=== PATIENT | male | born 1985 | race Caucasian/White ===

== ENCOUNTER 2016-11-05 21:05 | Emergency (ER) | payer OTHER ==
[2016-11-05 21:10] VITALS: BP 146/70; PULSE 74; TEMP 98.1; BMI 25.7
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
== END 2016-11-05 22:50 | disposition home or self-care (01) ==
LOC: JERFT 21:05
DX: S69.81XA Other specified injuries of right wrist, hand and finger(s), initial encounter (principal); Y35.891A Legal intervention involving other specified means, law enforcement official injured, initial encounter; Y93.89 Activity, other specified; Y92.89 Other specified places as the place of occurrence of the external cause; Y99.0 Civilian activity done for income or pay
CPT/HCPCS: 73110-TC-RT; 73130-TC-RT; 99281-25

== ENCOUNTER 2016-12-30 22:23 | Emergency (ER) | payer OTHER ==
[2016-12-30 22:39] VITALS: BP 150/94; PULSE 95; TEMP 98
--- NOTE | 2016-12-31 00:38 | PDOC ---
History of Present Illness - General Chief Complaint: Injury Stated Complaint: INJURY-[employer] Time Seen by Provider: 12/30/16 23:30 - History of Present Illness Initial Comments: 12/31/16 00:36 CHIEF COMPLAINT: HISTORY OF PRESENT ILLNESS: No recent travel or sick contacts. PAST MEDICAL HISTORY: Denies past medical history FAMILY HISTORY: Denies SOCIAL HISTORY: Lives at home with ____. Occupation: . Denies tobacco, alcohol, illicit drug use. SURGICAL HISTORY: Denies ALLERGIES: No known drug allergies REVIEW OF SYSTEMS General/Constitutional: Denies fever or chills. Denies weakness, weight change. HEENT: Denies change in vision. Denies ear pain or discharge. Denies sore throat. Cardiovascular: Denies chest pain or shortness of breath. Respiratory: Denies cough, wheezing, or hemoptysis. Gastrointestinal: Denies nausea, vomiting, diarrhea or constipation. Denies rectal bleeding. Genitourinary: Denies dysuria, frequency, or change in urination. Musculoskeletal: Denies joint or muscle swelling or pain. Denies neck or back pain. Skin and breasts: Denies rash or easy bruising. Neurologic: Denies headache, vertigo, loss of consciousness, or loss of sensation. Psychiatric: Denies depression or anxiety. Endocrine: Denies increased thirst. Denies abnormal weight change. Hematologic/Lymphatic: Denies anemia, easy bleeding, or history of blood clots. Allergic/Immunologic: Denies hives or skin allergy. Denies latex allergy. PHYSICAL EXAM General Appearance: Well-appearing, appropriately dressed. No apparent distress , no intoxication. HEENT: EOMI, PERRLA, normal ENT inspection, normal voice, TMs normal, pharynx normal. No conjunctival pallor. No photophobia, scleral icterus. Neck: Supple. Trachea midline. No tenderness, rigidity, carotid bruit, stridor , lymphadenopathy, or thyromegaly. Respiratory/Chest: Lungs CTAB. No shortness of breath, chest tenderness, respiratory distress, accessory muscle use. No crackles, rales, rhonchi, stridor , wheezing, dullness Cardiovascular: RRR. S1, S2. No JVD, murmur, bradycardia, tachycardia. Vascular Pulses: Dorsalis-Pedis (R): 2+, Dorsalis-Pedis (L): 2+ Gastrointestinal/Abdominal: Normal bowel sounds. Abdomen soft, non-distended. No tenderness or rebound tenderness. No organomegaly, pulsatile mass, guarding , hernia, hepatomegaly, splenomegaly. Lymphatic: No adenopathy, tenderness. Musculoskeletal/Extremities: Normal inspection. FROM of all extremities, normal capillary refill. Pelvis Stable. No CVA tenderness. No tenderness to extremities, pedal edema, swelling, erythema or deformity. Integumentary: Appropriate color, dry, warm. No cyanosis, erythema, jaundice or rash Neurologic: bundle helper II-XII intact. Fully oriented, alert. Appropriate mood/affect. Motor strength 5/5. No appreciable EOM palsy, facial droop or sensory deficit. Past History - Past Medical History Allergies/Adverse Reactions: Allergies Allergy/AdvReac Type Severity Reaction Status Date / Time No Known Drug Allergies Allergy Verified 08/25/15 23:00 Home Medications: Ambulatory Orders No Home Medications 0 dose .ROUTE UTDICT 01/13/13 Ibuprofen 600 mg PO TID PRN #21 tablet 12/31/16 Anemia: No Asthma: No Cancer: No Cardiac Disorders: No CVA: No COPD: No CHF: No Dementia: No Diabetes: No GI Disorders: No Disorders: No HTN: No Hypercholesterolemia: No Liver Disease: No Seizures: No Thyroid Disease: No - Surgical History Abdominal Surgery: No Appendectomy: No Cardiac Surgery: No - Family Disease History Family Disease History: Heart Disease: Grandparents - Immunization History Td Vaccination: Yes Immunization Up to Date: Yes - Psycho/Social/Smoking Cessation Hx Anxiety: No Suicidal Ideation: No Smoking Status: No Smoking History: Never smoked Have you smoked in the past 12 months: Yes Number of Cigarettes Smoked Daily: 0 Cigars Per Day: 0 Information on smoking cessation initiated: No Hx Alcohol Use: No Drug/Substance Use Hx: No Substance Use Type: None Hx Substance Use Treatment: No *Physical Exam - Vital Signs Last Vital Signs Temp Pulse Resp BP Pulse Ox 98.0 F 95 H 18 150/94 100 12/30/16 22:37 12/30/16 22:37 12/30/16 22:37 12/30/16 22:37 12/30/16 22:37 ED Treatment Course - RADIOLOGY Radiology Studies Ordered: Category Date Time Status LEG TIB/FIB-LEFT [RAD] Stat Radiology 12/31/16 00:16 Taken *DC/Admit/Observation/Transfer Diagnosis at time of Disposition: Injury of figueroa Qualifiers: Encounter type: initial encounter Laterality: left Qualified Code(s): S89.92XA - Unspecified injury of left lower leg, initial encounter - Discharge Dispostion Disposition: HOME Condition at time of disposition: Stable Admit: No - Prescriptions Prescriptions: Ibuprofen 600 mg PO TID PRN #21 tablet PRN Reason: Pain - Patient Instructions Printed Discharge Instructions: How To Perform RICE (Rest, Ice, Compress, Elevate), DI for Leg Pain Additional Instructions: Please take medications as prescribed. Follow up with orthopedics if symptoms persist. If you experience any new or worsening symptoms, please return to the ER.
== END 2016-12-31 01:03 | disposition home or self-care (01) ==
LOC: JERFT 22:23 → JER 22:23
DX: S89.92XA Unspecified injury of left lower leg, initial encounter (principal); Y35.891A Legal intervention involving other specified means, law enforcement official injured, initial encounter; Y93.89 Activity, other specified; Y92.9 Unspecified place or not applicable; Y99.0 Civilian activity done for income or pay
CPT/HCPCS: 73590-TC-LT; 99281-25

== ENCOUNTER 2017-05-06 21:20 | Emergency (ER) | payer OTHER ==
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
[2017-05-06 21:37] VITALS: BP 141/100; PULSE 73; TEMP 98; BMI 25.7
== END 2017-05-06 21:37 | disposition home or self-care (01) ==
LOC: JER 21:20
DX: Z77.21 Contact with and (suspected) exposure to potentially hazardous body fluids (principal); Y35.891A Legal intervention involving other specified means, law enforcement official injured, initial encounter; Y93.89 Activity, other specified; Y92.89 Other specified places as the place of occurrence of the external cause; Y99.0 Civilian activity done for income or pay
CPT/HCPCS: 99281-25

== ENCOUNTER 2017-11-28 15:42 | Emergency (ER) | payer OTHER ==
[2017-11-28 15:52] VITALS: BP 144/81; PULSE 83; TEMP 98.6; BMI 25.7
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
== END 2017-11-28 16:59 | disposition home or self-care (01) ==
LOC: JER 15:42 → JERFT 15:42
DX: S69.81XA Other specified injuries of right wrist, hand and finger(s), initial encounter (principal); Y35.811A Legal intervention involving manhandling, law enforcement official injured, initial encounter; Y93.89 Activity, other specified; Y92.89 Other specified places as the place of occurrence of the external cause; Y99.0 Civilian activity done for income or pay
CPT/HCPCS: 73110-TC-RT-FY; 73130-TC-RT-FY; 99281-25

== ENCOUNTER 2021-10-30 23:08 | Emergency (ER) | payer BC, OTHER ==
[2021-10-30 23:21] VITALS: BP 145/81; PULSE 123; TEMP 99.5; BMI 25.7
== END 2021-10-30 23:35 | disposition home or self-care (01) ==
LOC: FER 23:08
DX: S01.412A Laceration without foreign body of left cheek and temporomandibular area, initial encounter (principal); W21.220A Struck by ice hockey puck, initial encounter
CPT/HCPCS: 99281-25